=== PATIENT | male | born 1960 | race Caucasian/White ===

== ENCOUNTER 2023-04-22 10:36 | Observation (INO) | payer OTHER, SELFPAY ==
[2023-04-22] VITALS (19 sets, daily range): BP systolic 117–134; BP diastolic 81–96; PULSE 67–108; RESP 13–28; TEMP 36.7–36.9; O2SAT 96–100; BMI 29.3; BMI 29.2
--- NOTE | 2023-04-22 10:37 | CT_ITS ---
The [address] [address] Patient Name: BREANN VALDEZ MRN: [id number] date: 1960 Sex: M Assigned Patient Location: ER Current Patient Location: ED.MAIN Accession/Order Number: [id number] Exam Date: 04/22/2023 10:30 Report Date: 04/22/2023 11:00 At the request of: KURTIS HERRERA Procedure: CT stroke head/brain wo con EXAMINATION: CT stroke head/brain wo con HISTORY: DIZZINESS Dizziness COMPARISON: No relevant comparison available. TECHNIQUE: Axial CT images were obtained without IV contrast. Dose reduction techniques were achieved by using automated exposure control and/or adjustment of mA and/or kV according to patient size and/or use of iterative reconstruction technique. FINDINGS: BRAIN: No edema, hemorrhage, mass, acute infarction, or inappropriate atrophy. CSF SPACES: No hydrocephalus, subarachnoid hemorrhage, or mass. Appropriate for age. SKULL: No fracture, mass, or other significant visible lesion. SINUSES: No significant mucosal thickening or fluid on the limited views. ORBITS: No appreciable abnormality on the limited views. OTHER: Negative IMPRESSION: 1. No intracranial hemorrhage. 2. No acute or suspicious abnormality. Findings discussed with Cynthia in the emergency department to be relayed to Dr. Herrera. Electronically authenticated by: YUE BAY Date: 04/22/2023 11:00
--- NOTE | 2023-04-22 10:46 | ED_ITS ---
HPI - Dizziness General Chief Complaint: Dizziness Stated Complaint: POSSIBLE STROKE Time Seen by Provider: 04/22/23 10:46 History of Present Illness HPI Narrative: Patient brought into the emergency department via EMS for complaint of dysarthria. Patient states he coughed at 9 in the morning and went to the bathroom is going to take a shower and felt very dizzy. He states his last known well was at 9 AM. He felt like the room was spinning like if he was drunk. Steady and was trying to talk and noted that his speech was slurred. He has not been sick with anything recently. He denies any fever, chills. He denies any visual disturbance. He denies any headache. He denies any history of stroke. He denies any extremity paresthesias, or weakness. He denies any chest pain, shortness of breath. He denies any nausea, vomiting, diarrhea, constipation, or abdominal pain. He denies any flank pain, hematuria, dysuria. He states he is a diabetic and EMS checked his sugar and it was fine. Patient does not take any blood thinners. He has no previous history of heart disease. He denies any palpitations.On arrival to the emergency department the patient states all of his symptoms have resolved. He states when EMS picked him up he still had some dysarthria but it was much improved. Related Data Home Medications Medication Instructions Recorded Confirmed empagliflozin 25 mg tablet 25 mg PO DAILY 04/22/23 04/22/23 (Jardiance) insulin aspart U-100 100 unit/mL subcut 04/22/23 (3 mL) subcutaneous pen metformin 1,000 mg tablet 1,000 mg PO .2 TIMES PER DAY 04/22/23 04/22/23 Allergies Allergy/AdvReac Type Severity Reaction Status Date / Time Penicillins Allergy Severe hives Verified 04/22/23 10:45 Review of Systems ROS Status of ROS 10 or more systems reviewed and unremarkable except as noted in history and below [facility] PFS Social History Smoking status: Never smoker Exam Narrative Exam Narrative: Nurses notes and vital signs reviewed and patient is not hypoxic. General: Nontoxic, Well-appearing and in no apparent distress. Skin: Warm, dry, no pallor noted. No Rash Head: Normocephalic, atraumatic. Neck: Supple, non-tender. Eye: Pupils are equal, round and EOMI. No scleral icterus. Ears, Nose, Mouth, and Throat: TM clear, no posterior oropharynx erythema or nasal mucosal hypertrophy, uvula is mid-line Oral mucosa is moist Cardiovascular: Regular Rate and Rhythm without murmur, gallop or rub. Respiratory: No accessory muscle use or respiratory distress. Lungs are clear to auscultation, no wheezing, rales or rhonchi Chest Wall: no tenderness Back: No midline thoracic or lumbar vertebral tenderness. No CVA tenderness Musculoskeletal: normal ROM, no calf or popliteal tenderness, no lower extremity edema/swelling GI: Abdomen is soft, non-distended. Normal bowel sounds. No masses appreciated. No tenderness to palpation. No rebound, guarding, or rigidity noted. Neurological: A&O x4. NIHSS-0, No cranial nerve dysfunction observed. No truncal ataxia. Moves all extremities. Sensation intact. Psychiatric: Cooperative and interactive. Normal mood and affect. Constitutional Vital Signs - 24 hr 04/22/23 10:46 04/22/23 11:00 04/22/23 10:50 Temperature 98.4 F Pulse Rate Pulse Rate [Monitor] 91 H Respiratory Rate 18 Blood Pressure Blood Pressure [Left Arm] 133/84 H Pulse Oximetry 97 100 96 Oxygen Delivery Method Room Air Room Air 04/22/23 10:52 04/22/23 10:52 04/22/23 14:00 Temperature Pulse Rate 85 84 89 Pulse Rate [Monitor] Respiratory Rate 21 13 20 Blood Pressure 125/90 H 134/84 H Blood Pressure [Left Arm] Pulse Oximetry 97 97 96 Oxygen Delivery Method 04/22/23 14:01 04/22/23 14:02 04/22/23 14:18 Temperature Pulse Rate 102 H 69 75 Pulse Rate [Monitor] Respiratory Rate 18 25 H 24 Blood Pressure 117/82 H 120/96 H Blood Pressure [Left Arm] Pulse Oximetry 96 Oxygen Delivery Method 04/22/23 14:20 Temperature Pulse Rate 67 Pulse Rate [Monitor] Respiratory Rate 23 Blood Pressure Blood Pressure [Left Arm] Pulse Oximetry Oxygen Delivery Method Course Vital Signs Vital signs: Vital Signs Temperature 98.4 F 04/22/23 10:46 Pulse Rate 91 H 04/22/23 10:46 Respiratory Rate 18 04/22/23 10:46 Blood Pressure 133/84 H 04/22/23 10:46 Pulse Oximetry 97 04/22/23 10:46 Oxygen Delivery Method Room Air 04/22/23 10:46 Temperature 98.4 F 04/22/23 10:46 Pulse Rate 67 04/22/23 14:20 Respiratory Rate 23 04/22/23 14:20 Blood Pressure 120/96 H 04/22/23 14:02 Pulse Oximetry 96 04/22/23 14:01 Oxygen Delivery Method Room Air 04/22/23 11:00 MDM - Dizziness MDM Narrative Medical decision making narrative: CT stroke per stroke protocol was done. Patient CT results were discussed with Dr. Roach stroke doctor from [facility] who advised the patient is not a TPA candidate. He advised to do orthostatics. Also advised the patient does not need to be transferred to [facility] at this time. He should be given an aspirin and he can be admitted here for the rest of the workup. Patient was given 1 L of fluids.Patient was discussed with Dr. ordonez for admission. Differential Diagnosis Differential diagnosis: Likely benign paroxysmal positional vertigo, orthostatic hypotension, vertebral basilar insufficiency, cerebrovascular accident and transient cerebral ischemia Lab Data Attestation: I reviewed the patient's lab results. Labs: Lab Results 04/22/23 04/22/23 Range/Units 11:14 15:00 WBC 7.5 (4.0-11.0) 10^3/uL RBC 4.53 L (4.70-6.10) 10^6/uL Hgb 14.1 (14.0-18.0) g/dL Hct 41.4 L (42.0-54.0) % MCV 91.4 (80.0-94.0) fL MCH 31.1 (25.9-34.0) pg MCHC 34.1 (29.9-35.2) g/dL RDW 12.9 (11.0-15.0) % Plt Count 255 (150-450) 10^3/uL MPV 9.3 L (9.5-13.5) fL Neut % (Auto) 76.7 H (43.0-75.0) % Lymph % (Auto) 12.4 L (20.5-60.0) % [place] % (Auto) 7.4 (1.7-12.0) % Eos % (Auto) 2.8 (0.9-7.0) % Baso % (Auto) 0.3 (0.2-2.0) % Neut # (Auto) 5.7 (1.4-6.5) 10^3/uL Lymph # (Auto) 0.9 L (1.2-3.8) 10^3/uL [place] # (Auto) 0.6 (0.3-0.8) 10^3/uL Eos # (Auto) 0.2 (0.0-0.7) 10^3/uL Baso # (Auto) 0.0 (0.0-0.1) 10^3/uL Abs Immat Gran (auto) 0.03 (0.00-0.03) 10^3/uL Imm/Tot Granulo (auto) 0.4 (0.0-0.5) % PT 9.6 (9.0-11.6) sec INR <0.93 APTT 31.9 (22.3-36.2) sec Sodium 136 (136-145) mmol/L Potassium 5.4 H (3.5-5.1) mmol/L Chloride 102 (98-107) mmol/L Carbon Dioxide 26.9 (21.0-32.0) mmol/L Anion Gap 12.5 BUN 22.0 H (7.0-18.0) mg/dL Creatinine 1.08 (0.70-1.30) mg/dL Est GFR ( Amer) >60 (>=60) Est GFR (Non-Af Amer) >60 (>=60) BUN/Creatinine Ratio 20.4 Glucose 157 H (74-106) mg/dL Estimat Average Glucose 117 mg/dL Hemoglobin A1c 5.7 (4.5-6.2) % Calcium 9.1 (8.5-10.1) mg/dL Total Bilirubin 1.6 H (0.2-1.0) mg/dL AST 16 (15-37) U/L ALT 18 (16-63) U/L Alkaline Phosphatase 76 (46-116) U/L Troponin I High Sens 4.4 (4.0-76.1) pg/mL Total Protein 7.1 (6.4-8.2) g/dL Albumin 3.3 L (3.4-5.0) g/dL Globulin 3.8 g/dL Albumin/Globulin Ratio 0.9 ECG Data Attestation: I personally reviewed and interpreted this ECG as follows: Critical Care Time Critical Care Time Attestation: Critical Care Time: 45 minutes, critical care time is separate from any procedures that are performed. The following was considered in the determination of critical care but not limited to the level medical decision-making, intensive cardiac and/or respiratory monitor, frequent vital sign monitoring, evaluation of laboratory studies, evaluation of a radiographic studies, oxygen monitoring and constant monitoring. Discharge Plan Discharge Chief Complaint: Dizziness Clinical Impression: Dysarthria, Transient cerebral ischemia, Dehydration Patient Disposition: Admitted As Inpatient Time of Disposition Decision: 14:32 Condition: Good
--- NOTE | 2023-04-22 10:51 | ECG_ITS ---
The [facility] Test Date: 2023-04-22 Pat Name: BREANN VALDEZ Department: Room: - Gender: Male Senior Human Resources Representative: : 1960 Requested By: Order Number: [id number] Reading MD: YANY MARIA Measurements Intervals [place] Rate: 78 P: 27 [place]: 198 QRS: -3 QRSD: 70 T: -3 QT: 356 QTc: 389 Interpretive Statements 1100 Sinus rhythm T Wave inversion in III and aVF - cannot rule out inf wall ischemia 9120 atypical ECG No previous ECG available for comparison Electronically Signed On 04-23-2023 6:31:33 EDT by YANY MARIA
--- NOTE | 2023-04-22 11:36 | CT_ITS ---
[address] [address] Patient Name: BREANN VALDEZ MRN: [id number] date: 1960 Sex: M Assigned Patient Location: ER Current Patient Location: Accession/Order Number: [id number] Exam Date: 04/22/2023 13:10 Report Date: 04/22/2023 14:02 At the request of: KURTIS BAIG Procedure: CT angio head EXAMINATION: CT angio head, CT angio neck HISTORY: dysarthria Dizziness COMPARISON: CT head without contrast 04/22/2023 TECHNIQUE: Axial, Coronal, and Sagittal CT images with IV contrast. Multi-planar/3-D imaging to optimize visualization of vascular anatomy. Percent stenosis is based on NASCET criteria. Dose reduction techniques were achieved by using automated exposure control and/or adjustment of mA and/or kV according to patient size and/or use of iterative reconstruction technique. FINDINGS: HEAD: VASCULATURE: No significant stenosis. No visible aneurysm or vascular malformation. VENTRICLES: No enlargement or displacement. CEREBRUM: No excessive atrophy, mass, or hemorrhage, or abnormal enhancement. CEREBELLUM: . No excessive atrophy, mass, or hemorrhage, or abnormal enhancement. BRAINSTEM: No excessive atrophy, mass, or hemorrhage, or abnormal enhancement. BASAL CISTERNS: No subarachnoid hemorrhage or effacement. SKULL: Negative. NECK: RIGHT INTERNAL CAROTID: Mild atherosclerotic narrowing. EXTERNAL CAROTID: No hemodynamically significant stenosis or dissection. COMMON CAROTID: No hemodynamically significant stenosis or dissection. VERTEBRAL: No hemodynamically significant stenosis or dissection. LEFT INTERNAL CAROTID: Moderate to marked atherosclerotic narrowing of the proximal-mid ICA is suspected. EXTERNAL CAROTID: No hemodynamically significant stenosis or dissection. COMMON CAROTID: No hemodynamically significant stenosis or dissection. VERTEBRAL: No hemodynamically significant stenosis or dissection. OTHER: The visualized soft tissues of the neck are also unremarkable. IMPRESSION: 1. Normal CT angiography of the brain. 2. Moderate or slightly greater atherosclerotic narrowing of the left proximal-mid internal carotid artery. Consider ultrasound evaluation of the carotid arteries to evaluate for any limiting flow stenosis. Electronically authenticated by: YUE BAY Date: 04/22/2023 14:02
--- NOTE | 2023-04-22 11:36 | CT_ITS ---
[address] [address] Patient Name: BREANN VALDEZ MRN: [id number] date: 1960 Sex: M Assigned Patient Location: ER Current Patient Location: Accession/Order Number: [id number] Exam Date: 04/22/2023 13:10 Report Date: 04/22/2023 14:02 At the request of: KURTIS BAIG Procedure: CT angio neck EXAMINATION: CT angio head, CT angio neck HISTORY: dysarthria Dizziness COMPARISON: CT head without contrast 04/22/2023 TECHNIQUE: Axial, Coronal, and Sagittal CT images with IV contrast. Multi-planar/3-D imaging to optimize visualization of vascular anatomy. Percent stenosis is based on NASCET criteria. Dose reduction techniques were achieved by using automated exposure control and/or adjustment of mA and/or kV according to patient size and/or use of iterative reconstruction technique. FINDINGS: HEAD: VASCULATURE: No significant stenosis. No visible aneurysm or vascular malformation. VENTRICLES: No enlargement or displacement. CEREBRUM: No excessive atrophy, mass, or hemorrhage, or abnormal enhancement. CEREBELLUM: . No excessive atrophy, mass, or hemorrhage, or abnormal enhancement. BRAINSTEM: No excessive atrophy, mass, or hemorrhage, or abnormal enhancement. BASAL CISTERNS: No subarachnoid hemorrhage or effacement. SKULL: Negative. NECK: RIGHT INTERNAL CAROTID: Mild atherosclerotic narrowing. EXTERNAL CAROTID: No hemodynamically significant stenosis or dissection. COMMON CAROTID: No hemodynamically significant stenosis or dissection. VERTEBRAL: No hemodynamically significant stenosis or dissection. LEFT INTERNAL CAROTID: Moderate to marked atherosclerotic narrowing of the proximal-mid ICA is suspected. EXTERNAL CAROTID: No hemodynamically significant stenosis or dissection. COMMON CAROTID: No hemodynamically significant stenosis or dissection. VERTEBRAL: No hemodynamically significant stenosis or dissection. OTHER: The visualized soft tissues of the neck are also unremarkable. IMPRESSION: 1. Normal CT angiography of the brain. 2. Moderate or slightly greater atherosclerotic narrowing of the left proximal-mid internal carotid artery. Consider ultrasound evaluation of the carotid arteries to evaluate for any limiting flow stenosis. Electronically authenticated by: YUE BAY Date: 04/22/2023 14:02
[2023-04-22 12:37] LABS: Basophils Percent Auto 0.3 % (0.2-2.0); Eosinophils Absolute Auto 0.2 10^3/uL (0.0-0.7); Eosinophils Percent Auto 2.8 % (0.9-7.0); Hematocrit 41.4 % (42.0-54.0); Hemoglobin 14.1 g/dL (14.0-18.0); Immature Granulocytes Abs Auto 0.03 10^3/uL (0.00-0.03); Immature Granulocytes Pct Auto 0.4 % (0.0-0.5); Lymphocytes Absolute Auto 0.9 10^3/uL (1.2-3.8); Lymphocytes Percent Auto 12.4 % (20.5-60.0); Mean Corpuscular HGB Conc 34.1 g/dL (29.9-35.2); Mean Corpuscular Hemoglobin 31.1 pg (25.9-34.0); Mean Corpuscular Volume 91.4 fL (80.0-94.0); Mean Platelet Volume 9.3 fL (9.5-13.5); Monocytes Absolute Auto 0.6 10^3/uL (0.3-0.8); Monocytes Percent Auto 7.4 % (1.7-12.0); Neutrophils Absolute Auto 5.7 10^3/uL (1.4-6.5); Neutrophils Percent Auto 76.7 % (43.0-75.0); Platelet Count 255 10^3/uL (150-450); Red Blood Count 4.53 10^6/uL (4.70-6.10); Red Cell Distribution Width 12.9 % (11.0-15.0); White Blood Count 7.5 10^3/uL (4.0-11.0)
[2023-04-22 12:48] LABS: Partial Thromboplastin Time 31.9 sec (22.3-36.2); Prothrombin Time 9.6 sec (9.0-11.6)
[2023-04-22 12:49] LABS: INR <0.93
[2023-04-22 12:59] LABS: Alanine Aminotransferase 18 U/L (16-63); Albumin Globulin Ratio 0.9; Albumin Level 3.3 g/dL (3.4-5.0); Alkaline Phosphatase 76 U/L (46-116); Anion Gap 12.5; Aspartate Amino Transferase 16 U/L (15-37); BUN Creatinine Ratio 20.4; Bilirubin Total 1.6 mg/dL (0.2-1.0); Calcium 9.1 mg/dL (8.5-10.1); Carbon Dioxide 26.9 mmol/L (21.0-32.0); Chloride 102 mmol/L (98-107); Estimated GFR (African America >60 (>=60); Estimated GFR (Non-African Ame >60 (>=60); Globulin 3.8 g/dL; Glucose 157 mg/dL (74-106); Potassium 5.4 mmol/L (3.5-5.1); Sodium 136 mmol/L (136-145); Total Protein 7.1 g/dL (6.4-8.2)
[2023-04-22 13:02] LABS: Troponin I High Sensitivity 4.4 pg/mL (4.0-76.1)
[2023-04-22] MEDS: ASPIRIN 81 MG TAB.CHEW 324 MG PO (13:58)
--- NOTE | 2023-04-22 14:15 | PC.NURSE ---
Orthopedic blood pressures laying: HR 87 BP 134/84 sitting: HR 97 BP 117/82 standing: HR 102 BP 120/96
--- NOTE | 2023-04-22 14:58 | CA_ITS ---
Patient Name Site Name BREANN VALDEZ The [facility] Account No Medical Record Number Age Sex Date Time [id number] [facility]:[id number] M 04/23/2023 11:27 At the Request Of SHAIKH MANISH ECHOCARDIOGRAM REPORT PROCEDURE: CA ECHO DOPPLER COMPLETE INDICATIONS: TIA, diabetes COMPARISON: None. DESCRIPTION: COMPLETE ECHOCARDIOGRAM Real-time transthoracic echocardiography with 2D, M-mode, spectral and color flow Doppler performed. QUALITY: Technically difficult due to patients condition. LEFT VENTRICLE: Normal chamber size. Mild concentric left ventricular hypertrophy. Normal systolic function. LV EF: Normal left ventricular ejection fraction, (55%). DIASTOLIC: Diastolic function is indeterminate. ATRIAL SEPTUM: LEFT ATRIUM: Normal chamber size. RIGHT ATRIUM: Normal chamber size. RIGHT VENTRICLE: Normal chamber size. Normal right ventricular systolic function. TRICUSPID VALVE: Normal mobility and thickness. No stenosis with no regurgitation. MITRAL VALVE: Normal mobility and thickness. No evidence of mitral valve stenosis. There is no mitral annular calcification. No mitral regurgitation. AORTIC VALVE: Normal trileaflet appearance. No visible sclerosis. Normal leaflet mobility. No evidence of aortic valve stenosis. No aortic regurgitation. AORTIC ROOT: Normal diameter and appearance. PULMONIC VALVE: Normal thickness and mobility. No stenosis. No regurgitation. PERICARDIUM: No evidence of pericardial effusion. IVC: Not well visualized. PLEURA: CONCLUSION: 1. Mild concentric left ventricular hypertrophy. 2. Normal left ventricular systolic function. LVEF is 55%. 3. Normal right ventricular size and systolic function. 4. No significant valvular dysfunction. 5. Unable to assess right-sided pressures due to lack of measurable tricuspid regurgitation. 6. No pericardial effusion. Adult Echocardiography Procedure Report Left Ventricle LVEDD (3.7 - 5.6 cm): 4.53 cm LVESD (2.2 - 4.0 cm): 3.16 cm LVIVS thickness (0.6 - 1.2 cm): 1.36 cm LVPW thickness (0.5 - 1.0 cm): 1.22 cm e': 0.09 m/s E - e': 4.24 LVOT Max Gradient: 1.10 mm[Hg] LVOT Area (cm2): 0.52 m/s Peak Velocity (LVOT): 0.52 m/s LVOT Diameter 2.95 cm Left Atrium Left Atrium Systolic Dimension: 3.70 cm Mitral Valve MV E to A Ratio: 0.59 Mitral Valve A-Wave Peak Velocity: 0.63 m/s Mitral Valve E-Wave Peak Velocity: 0.37 m/s Right Ventricle Aorta AO Root Diam: 3.68 cm Ascending Ao Diam: 3.69 cm Aortic Valve AoV Area (Peak Chad): 4.48 cm2, 4.48 cm2 Peak Velocity(Antegrade Flow): 0.80 m/s Peak Gradient(Antegrade Flow): 2.56 mm[Hg] Tricuspid Valve Pulmonic Valve Peak Velocity: 0.88 m/s Peak Gradient: 3.53 mm[Hg], 2.65 mm[Hg] Right Atrium Dictated by: Elton Jefferson M.D. on 04/23/2023 at 18:57 Approved by: Elton Jefferson M.D. on 04/23/2023 at 19:00
--- NOTE | 2023-04-22 14:59 | MR_ITS ---
The [address] [address] Patient Name: BREANN VALDEZ MRN: [id number] date: 1960 Sex: M Assigned Patient Location: MS Current Patient Location: MS Accession/Order Number: [id number] Exam Date: 04/22/2023 13:20 Report Date: 04/22/2023 16:53 At the request of: SHAIKH MANISH Procedure: MR head/brain wo con EXAM: MR head/brain wo con HISTORY: TIA/CVA COMPARISON: CT brain 04/22/2023. TECHNIQUE: MRI of the brain was performed without contrast. FINDINGS: There is no restricted diffusion to suggest acute infarct. There is no midline shift, mass effect, or abnormal extraaxial fluid collections. The cortical sulci and ventricular system are within normal limits for age. There are a few nonspecific scattered foci of T2/FLAIR signal abnormality in the subcortical and periventricular white matter, likely reflect chronic microvascular ischemic changes. The major intracranial flow voids are visualized. The cerebellar tonsils are normal in position. The orbits are unremarkable. The paranasal sinuses show no air-fluid levels. The mastoid air cells are clear. IMPRESSION: No acute intracranial abnormality. Electronically authenticated by: CANDIS GRAHAM Date: 04/22/2023 16:53
[2023-04-22 15:17] LABS: Estimated Average Glucose 117 mg/dL; Glycohemoglobin A1C 5.7 % (4.5-6.2)
[2023-04-22] MEDS: ENOXAPARIN SODIUM 40 MG/0.4 ML SYRINGE SUBQ (18:54)
[2023-04-22] MEDS: ASPIRIN 81 MG TAB.CHEW PO (18:55)
[2023-04-22 21:54] LABS: Glucometer 165 mg/dL (74-106)
[2023-04-23] VITALS (9 sets, daily range): BP systolic 112; BP diastolic 74; PULSE 72–95; RESP 18; TEMP 36.5; O2SAT 91
[2023-04-23 05:38] LABS: Chol HDL Ratio 3.3; Cholesterol 170 mg/dL (<=200); HDL Cholesterol 52 mg/dL (40-60); LDL Cholesterol Calculated 97.4 mg/dL; Triglycerides 103 mg/dL (<=150); VLDL CHOLESTEROL 20.6 mg/dL
[2023-04-23 05:50] LABS: Estimated Average Glucose 117 mg/dL; Glycohemoglobin A1C 5.7 % (4.5-6.2)
[2023-04-23 06:03] LABS: Alanine Aminotransferase 14 U/L (16-63); Albumin Globulin Ratio 0.7; Albumin Level 2.6 g/dL (3.4-5.0); Alkaline Phosphatase 73 U/L (46-116); Anion Gap 11.8; Aspartate Amino Transferase 19 U/L (15-37); Basophils Percent Auto 0.4 % (0.2-2.0); Bilirubin Total 0.8 mg/dL (0.2-1.0); Calcium 7.8 mg/dL (8.5-10.1); Carbon Dioxide 28.9 mmol/L (21.0-32.0); Chloride 97 mmol/L (98-107); Eosinophils Absolute Auto 0.2 10^3/uL (0.0-0.7); Eosinophils Percent Auto 4.7 % (0.9-7.0); Estimated GFR (African America >60 (>=60); Estimated GFR (Non-African Ame >60 (>=60); Globulin 3.5 g/dL; Glucose 120 mg/dL (74-106); Hematocrit 43.2 % (42.0-54.0); Hemoglobin 14.9 g/dL (14.0-18.0); Immature Granulocytes Abs Auto 0.02 10^3/uL (0.00-0.03); Immature Granulocytes Pct Auto 0.4 % (0.0-0.5); Lymphocytes Absolute Auto 1.7 10^3/uL (1.2-3.8); Lymphocytes Percent Auto 35.5 % (20.5-60.0); Mean Corpuscular HGB Conc 34.5 g/dL (29.9-35.2); Mean Corpuscular Hemoglobin 31.3 pg (25.9-34.0); Mean Corpuscular Volume 90.8 fL (80.0-94.0); Monocytes Absolute Auto 0.5 10^3/uL (0.3-0.8); Monocytes Percent Auto 10.1 % (1.7-12.0); Neutrophils Absolute Auto 2.3 10^3/uL (1.4-6.5); Neutrophils Percent Auto 48.9 % (43.0-75.0); Platelet Count 246 10^3/uL (150-450); Potassium 3.7 mmol/L (3.5-5.1); Red Blood Count 4.76 10^6/uL (4.70-6.10); Red Cell Distribution Width 12.5 % (11.0-15.0); Sodium 134 mmol/L (136-145); Total Protein 6.1 g/dL (6.4-8.2); White Blood Count 4.7 10^3/uL (4.0-11.0)
--- NOTE | 2023-04-23 11:32 | US_ITS ---
[address] [address] Patient Name: BREANN VALDEZ MRN: [id number] date: 1960 Sex: M Assigned Patient Location: MS Current Patient Location: MS Accession/Order Number: [id number] Exam Date: 04/23/2023 12:00 Report Date: 04/23/2023 13:17 At the request of: SHAIKH MANISH Procedure: US carotid duplex BI EXAMINATION: US carotid duplex BI HISTORY: stroke symptoms COMPARISON: No relevant comparison available. TECHNIQUE: Duplex Doppler ultrasound analysis of carotid and vertebral arteries. . Bilateral carotid arterial duplex examination was performed using B-mode, color flow and spectral analysis. Carotid stenosis is reported according to validated velocity parameters, similar to NASCET criteria. FINDINGS: RIGHT CAROTID ARTERY: Mild narrowing of proximal ICA secondary to atherosclerotic plaque. RIGHT VERTEBRAL: Antegrade flow. Subclavian: PSV: 108.1 cm/s EDV: 11.1 cm/s CCA: Prox: PSV: 61.4 cm/s EDV: 18.6 cm/s Mid: PSV: 65.8 cm/s EDV: 21.9 cm/s Distal: PSV: 57.2 cm/s EDV: 22.3 cm/s BULB: PSV: 49.6 cm/s EDV: 19.1 cm/s ICA: Prox: PSV: 61.6 cm/s EDV: 31.9 cm/s Mid: PSV: 86.2 cm/s EDV: 34.4 cm/s Distal: PSV: 57.2 cm/s EDV: 31.1 cm/s ECA: PSV: 88.8 cm/s EDV: 17.6 cm/s VERTEBRAL: PSV: 27.4 cm/s EDV: 12.5 cm/s ICA/CCA ratio: PSV: 1.5 EDV: 1.5 LEFT CAROTID ARTERY: Mild narrowing of bulb/proximal ICA secondary to atherosclerotic plaque. LEFT VERTEBRAL: Antegrade flow. Subclavian: PSV: 72.3 cm/s EDV: 0.0 cm/s CCA: Prox: PSV: 98.4 cm/s EDV: 33.8 cm/s Mid: PSV: 97.9 cm/s EDV: 28.4 cm/s Distal: PSV: 74.3 cm/s EDV: 29.2 cm/s BULB: PSV: 29.5 cm/s EDV: 10.4 cm/s ICA: Prox: PSV: 93.5 cm/s EDV: 40.2 cm/s Mid: PSV: 114.0 cm/s EDV: 49.4 cm/s Distal: PSV: 75.4 cm/s EDV: 35.8 cm/s ECA: PSV: EDV: VERTEBRAL: PSV: 74.5 cm/s EDV: 24.1 cm/s ICA/CCA ratio: PSV: 1.5 EDV: 1.7 IMPRESSION: 1. Mild atherosclerotic disease. 2. 0-49% flow stenosis within the right and left carotid arteries. Electronically authenticated by: YUE BAY Date: 04/23/2023 13:17
--- NOTE | 2023-04-23 12:30 | CM.NOTE ---
Rounds made with Dr. Patterson, pt will have carotid ultrasound and echo today. Pt may be discharged this afternoon after testing.
--- NOTE | 2023-04-23 14:44 | PM.HP ---
H&P: HPI History of Present Illness Chief complaint: POSS STROKE, dysarthria, transient cerebral ischem Narrative: HPI and Hospital Course: 62 y o male with hx of T2 DM was in usual state of health when he had sudden onset dizziness, and inability to express/speak along with numbness in his fingers b/l. He reports that he knew what he wanted to say but he could not speak those words. He also had unsteady feeling along with those symptoms. Denies facial asymmetry, weakness, numbness or changes in vision. His symptoms last for under 1 hour and had more or less resolved after Head CT was performed in ED. He has no prior hx of CVA, CAD. He smoked for a few weeks in college but has not smoked since. No sig FHx of CAD/CVA in family. He has no symptoms to offer currently. Admission Diagnosis TIA T2 DM Discharge Diagnosis TIA T2DM HLD Discharge status stable Review of Systems ROS Status of ROS 10 or more systems reviewed and unremarkable except as noted in history and below [facility] Medical History (Updated 04/23/23 @ 14:52 by Shaikh Yesenia MD) Social History Smoking status: Never smoker Meds Home Medications and Allergies Home Medications Medication Instructions Recorded Confirmed Type empagliflozin 25 mg tablet 25 mg PO DAILY 04/22/23 04/22/23 History (Jardiance) insulin aspart U-100 100 unit/mL 1 sliding scale dose subcut ACHS 04/22/23 04/22/23 History (3 mL) subcutaneous pen metformin 1,000 mg tablet 1,000 mg PO .2 TIMES PER DAY 04/22/23 04/22/23 History aspirin 81 mg chewable tablet 81 mg PO DAILY #30 tabs 04/23/23 Rx atorvastatin 40 mg tablet (Lipitor) 40 mg PO DAILY #30 tabs 04/23/23 Rx Allergies Allergy/AdvReac Type Severity Reaction Status Date / Time Penicillins Allergy Severe hives Verified 04/22/23 10:45 Exam Constitutional Vital Signs - 24 hr 04/22/23 16:36 04/22/23 14:50 04/22/23 15:00 Temperature 98.1 F Pulse Rate 73 85 108 H Respiratory Rate 16 19 23 Blood Pressure [Left Arm] Blood Pressure [orthostatic lying] Blood Pressure [orthostatic sitting] Blood Pressure [orthostatic standing] Pulse Oximetry 96 Oxygen Delivery Method Room Air 04/22/23 15:10 04/22/23 16:51 04/22/23 16:36 Temperature Pulse Rate 83 Respiratory Rate 21 16 Blood Pressure [Left Arm] Blood Pressure [orthostatic lying] Blood Pressure [orthostatic sitting] Blood Pressure [orthostatic standing] Pulse Oximetry Oxygen Delivery Method Room Air 04/22/23 17:31 04/22/23 18:17 04/22/23 20:08 Temperature Pulse Rate 80 85 Respiratory Rate Blood Pressure [Left Arm] Blood Pressure [orthostatic lying] 133/84 H Blood Pressure [orthostatic sitting] 124/85 H Blood Pressure [orthostatic standing] 118/81 H Pulse Oximetry Oxygen Delivery Method 04/22/23 22:03 04/23/23 00:02 04/23/23 02:01 Temperature Pulse Rate 88 87 72 Respiratory Rate Blood Pressure [Left Arm] Blood Pressure [orthostatic lying] Blood Pressure [orthostatic sitting] Blood Pressure [orthostatic standing] Pulse Oximetry Oxygen Delivery Method 04/23/23 04:00 04/23/23 06:03 04/23/23 06:18 Temperature 97.7 F Pulse Rate 78 76 Respiratory Rate 18 Blood Pressure [Left Arm] 112/74 Blood Pressure [orthostatic lying] Blood Pressure [orthostatic sitting] Blood Pressure [orthostatic standing] Pulse Oximetry 91 L Oxygen Delivery Method Room Air 04/23/23 08:10 04/23/23 10:06 04/23/23 12:03 Temperature Pulse Rate 95 H 90 75 Respiratory Rate Blood Pressure [Left Arm] Blood Pressure [orthostatic lying] Blood Pressure [orthostatic sitting] Blood Pressure [orthostatic standing] Pulse Oximetry Oxygen Delivery Method 04/23/23 13:59 Temperature Pulse Rate 82 Respiratory Rate Blood Pressure [Left Arm] Blood Pressure [orthostatic lying] Blood Pressure [orthostatic sitting] Blood Pressure [orthostatic standing] Pulse Oximetry Oxygen Delivery Method Documenting provider has reviewed patient's vital signs: yes General appearance: cooperative and comfortable HENMT Common normals: normocephalic and head/scalp atraumatic Respiratory Common normals: normal respiratory effort, no use of accessory muscles and clear to auscultation bilaterally Cardio Common normals: no JVD, regular rhythm, S1 normal heart sound and S2 normal heart sound GI Common normals: Normal to inspection, nondistended, normoactive bowel sounds present, non-tender, no hepatosplenomegaly and no masses Extremity Common normals: normal to inspection and full ROM Neuro Common normals: oriented x3, CN's II-XII intact bilaterally, moves all extremities, no focal motor deficits and no sensory deficits noted Coordination/balance: [id number] test normal, does not sway with eyes open and Romberg test negative Speech: speech normal Gait (neuro): normal gait Sensory exam: extremities Motor exam: strength 5/5 throughout Psych Common normals: mental status grossly normal, denies hallucinations, denies homicidal ideation and denies suicidal ideation Appearance: grossly normal Results Labs Labs: Short CBC 04/22/23 Range/Units 04:15 WBC 4.7 (4.0-11.0) 10^3/uL Hgb 14.9 (14.0-18.0) g/dL Hct 43.2 (42.0-54.0) % Plt Count 246 (150-450) 10^3/uL BMP 04/22/23 04:15 Sodium 134 L Potassium 3.7 Chloride 97 L Carbon Dioxide 28.9 BUN 19.0 H Creatinine 1.12 Glucose 120 H Calcium 7.8 L Liver Function 04/22/23 Range/Units 04:15 Total Bilirubin 0.8 (0.2-1.0) mg/dL AST 19 (15-37) U/L ALT 14 L (16-63) U/L Alkaline Phosphatase 73 (46-116) U/L Albumin 2.6 L (3.4-5.0) g/dL Assessment and Plan Assessment and Plan (1) Transient cerebral ischemia: Assessment and Plan: CT head negative, MRI brain negative CTA head/neck - no large vessel disease 2D ECHO - unofficial read - no sig WMA, Normal EF No evidence of afib or ahythmia on tele Will discharge on oral ASA, STATIN for TIA. F/u with PCP in one week and Vascular Neurology in 1-2 weeks Qualifiers: Transient cerebral ischemia type: unspecified Qualified Code(s): G45.9 - Transient cerebral ischemic attack, unspecified (2) Type 2 diabetes mellitus: Assessment and Plan: Well controlled. c/w home meds Qualifiers: Diabetes mellitus nursing home insulin use: without long distance operator use Diabetes mellitus complication status: without complication Qualified Code(s): E11.9 - Type 2 diabetes mellitus without complications (3) HLD (hyperlipidemia): Assessment and Plan: Started on Lipitor 40. Lipid panel needs to be repeat in 6-8 weeks Qualifiers: Hyperlipidemia type: unspecified Qualified Code(s): E78.5 - Hyperlipidemia, unspecified
--- NOTE | 2023-04-24 10:47 | CM.DCFOLLOWU ---
Person spoke with: How are you feeling? How is your pain? Did you understand your discharge instructions? Do you have any questions about your discharge instructions? Were you given any prescriptions at discharge? Were you able to get your prescriptions filled? Do you understand how to take your medications as ordered? Do you have any questions about your follow up appointment and do you plan to keep your follow up appointment? Is there anything else that you would like to discuss? Questions/Comments/Concerns/Other: Both phone numbers listed in the chart are disconnected, not able to contact patient
== END 2023-04-23 16:25 | disposition home or self-care (01) ==
LOC: ER 14:50 → MS 15:51
PROVIDERS: Admitting Provider Internal Medicine; Emergency Provider Emergency Medicine; PCP Family Medicine; Visit Provider Internal Medicine
DX: G45.9 Transient cerebral ischemic attack, unspecified (principal); E11.9 Type 2 diabetes mellitus without complications; E78.5 Hyperlipidemia, unspecified; Z79.82 Long term (current) use of aspirin; Z79.899 Other long term (current) drug therapy; Z79.4 Long term (current) use of insulin; Z79.84 Long term (current) use of oral hypoglycemic drugs
CPT/HCPCS: 36415; 70450; 70496; 70498; 70551; 80053; 80061; 83036; 84484; 85025; 85610; 85730; 93005; 93306; 93880; 96372; 99285; G0378; Q3014; Q9967